=== PATIENT | male | born 1980 | race African-American/Black ===

== ENCOUNTER 2023-04-13 16:02 | Emergency (ER) | payer OTHER, MEDICAID ==
[~2023-04-13] VITALS: Ht 188 cm; Wt 115.0 kg
[2023-04-13 16:12] VITALS: O2SAT 95
[2023-04-13] MEDS ORDERED: CEFTRIAXONE 1GM PREMIX 50 ML IV NR (18:00)
[2023-04-13] MEDS ORDERED: AZITHROMYCIN 500MG/250ML 250 ML IV SCH (18:30)
[2023-04-13 21:21] LABS: HEMATOCRIT. 48.5 % (42.0-52.0); HEMOGLOBIN. 15.5 g/dL (14.0-18.0); MEAN CORPUSCULAR HEMOGLOBIN 24.2 pg (28.0-32.0); MEAN CORPUSCULAR VOLUME 75.6 fL (80.0-94.0); MEAN PLATELET VOLUME 8.6 fl (7.4-10.4); PLATELET 211 x1000/uL (130-400); RED BLOOD CELL COUNT 6.42 mill/uL (4.7-6.1); RED CELL DISTRIBUTION WIDTH 20.3 % (11.6-14.6)
[2023-04-13 21:27] LABS: CHLORIDE 105 mEq/L (98-107)
[2023-04-13 21:48] LABS: PLATELET ESTIMATE NORMAL
[2023-04-13] MEDS ORDERED: AMOX1TAB16 MT (22:17)
[2023-04-14 01:30] VITALS: BP 128/94; PULSE 81; RESP 21; TEMP 98.2
== END 2023-04-14 02:25 | disposition home or self-care (01) ==
LOC: ER 16:02
DX: J18.9 Pneumonia, unspecified organism (principal); J90 Pleural effusion, not elsewhere classified; I10 Essential (primary) hypertension; Z20.822 Contact with and (suspected) exposure to COVID-19
CPT/HCPCS: 99284; 96366; 96365; 71045; 87426; 80053; 83880; 85025; 36415; 96368; J0456; J0696; C9803; C1893